=== PATIENT | female | born 1930 | race Caucasian/White ===

== ENCOUNTER 2016-10-06 11:12 | Observation (INO) | payer MEDICARE, OTHER ==
[~2016-10-06] VITALS: Ht 162.6 cm; Wt 74.9 kg
[2016-10-06] VITALS (7 sets, daily range): BP systolic 108–152; BP diastolic 60–90; PULSE 89–132; RESP 16–18; O2SAT 91–98
[~2016-10-06 11:12] MED LIST: ALLO300T2 PO; ARNI120T TP; ATOR40TA69 PO; CHOL4PAC PO; CLOP75TA28 PO; CYAN25003 SL; ERGO2000 PO; LETR2.5T4 PO; LOSA100T29 PO; MULT1CAP33 PO; NADO80TA PO; OMEP20CA11 PO; VENL37.57 PO; WARF5TAB7 PO
--- NOTE | 2016-10-06 11:21 | ED.REPORT ---
HPI-Neurologic Deficit Date of Service Oct 06, 2016 ED Provider: Dr. Shay The pt is an 85 y/o female on Coumadin with a hx of TIA in 2013 (causing loss of feeling on the bottom of the right foot), A-fib, breast CA (s/p radiation tx , currently on aromatase inhibitor), and HTN who presents to the ED complaining of sudden onset of slurred speech, onset last night. Associated sx include confusion, left sided facial droop, intermittent right occipital headache, nausea and left leg weakness. She is able to walk but states "my left leg isn't working as well as it used to." The pt is not a TPA candidate due to timing and warfarin. Nursing Notes Stated Complaint: POSSIBLE STROKE Nursing Notes Reviewed: Yes Allergies: Coded Allergies: MONTRELL Inhibitors (Verified Allergy, Unknown, COUGH, 12/03/15) NSAIDS (Non-Steroidal Anti-Inflamma (Verified Allergy, Unknown, GI INTOL, 12/03/15) Sulfa (Sulfonamide Antibiotics) (Verified Allergy, Unknown, 12/03/15) amlodipine (Verified Allergy, Unknown, PALP, DIARRHEA, 12/03/15) diltiazem (Verified Allergy, Unknown, CORRAL,PALP, 12/03/15) gabapentin (Verified Allergy, Unknown, PAIN IN BREAST, 12/03/15) guanfacine (Verified Allergy, Unknown, FATIGUE, 12/03/15) hydrochlorothiazide (Verified Allergy, Unknown, WASHED OUT, 12/03/15) oxycodone (Verified Allergy, Unknown, NAUSEA, 12/03/15) reserpine (Verified Allergy, Unknown, VERTIGO, 12/03/15) rosuvastatin (Verified Allergy, Unknown, MUSCLE CRAMPS, 12/03/15) terazosin (Verified Allergy, Unknown, NASAL CONGESTION, JITTERY, 12/03/15) triamterene (Verified Allergy, Unknown, 12/03/15) Uncoded Allergies: SULFA (Allergy, Unknown, 12/03/13) TRIAMTER (Adverse Reaction, Unknown, WASHED OUT, 09/22/13) Scheduled Allopurinol (Allopurinol) 300 Mg Tablet 300 MG PO DAILY Atorvastatin Calcium (Atorvastatin Calcium) 40 Mg Tablet 20 MG PO DAILY Cholestyramine/Aspartame (Cholestyramine Light Packet) 4 Gm Powd.pack 1 PACKET PO DAILY Cyanocobalamin (Vitamin B-12) (Vitamin B-12) 2,500 Mcg Tab.subl 2,500 MCG SL DAILY Ergocalciferol (Vitamin D2) (Vitamin D2) 2,000 Unit Tablet 1 TAB PO DAILY Letrozole (Letrozole) 2.5 Mg Tablet 2.5 MG PO PM Losartan Potassium (Losartan Potassium) 100 Mg Tablet 100 MG PO HS Multivitamin (Multivitamins) 1 Each Capsule 1 EACH PO DAILY Nadolol (Nadolol) 80 Mg Tablet 80 MG PO HS Omeprazole (Omeprazole) 20 Mg Capsule.dr 20 MG PO DAILY Warfarin Sodium (Warfarin Sodium) 5 Mg Tablet 5 MG PO DAILY except SUN Warfarin Sodium (Warfarin Sodium) 5 Mg Tablet 2.5 MG PO Q SUNDAY Scheduled PRN Venlafaxine (Venlafaxine) 37.5 Mg Tablet 37.5 MG PO BID PRN PRN MOOD General Time Seen by Provider: 11:23 Chief Complaint Slurred speech Hx Obtained From: Patient, Daughter Arrived By: Walk-in Sudden in Onset?: Yes Onset Occurred: Yesterday Symptom Duration: Since onset Location: : Head Quality: Painful Radiation: : Does not radiate Severity: Current: Mild Severity: Maximum: Mild Recent Healthcare: Recent doctor visit Similar Sx Previous: Yes Risk Factors NIH Stroke Scale Level of Consciousness: Alert and responsive (0) Ask Month & Age: Both questions right (0) Open/Close Eyes/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 (0) Horizontal EO Movements: None (0) Visual Palma: No visual loss (0) Facial Palsy: Minor paralysis (1) Right Arm Motor Drift (10s): No drift 10 sec (0) Left Arm Motor Drift (10s): No drift 10 sec (0) Right Leg Motor Drift (5s): No drift 5 sec (0) Left Leg Motor Drift (5s): No drift 5 sec (0) Limb Ataxia FNF/Heel-Grajeda: No ataxia (0) Sensation (Arms/Legs/Face): No sensory loss (0) Language Aphasia: No aphasia, normal (0) Dysarthria: Slurring intelligible (1) Extinction/Inattention: No exctinct/inattent (0) NIHSS Score: 2 Time NIHSS Performed: 11:25 Date NIHSS Performed: Oct 06, 2016 Past Medical History Past Medical History Breast CA s/p radiation tx, currently on aromatase inhibitor HTN Gout IBS CVA November 2013 Remote history of migraines Past Surgical History None Smoking History Never Smoker Social History Alcohol Use: Denies alcohol use Drug Use: Denies drug use Other Social History: Ambulatory Status Cane Review of Systems Reports: memory problem Reports: left sided facial droop GI: Reports: Nausea Neurologic: Reports: Confusion, Headache, Slurred speech, Weakness (left leg weakness) Complete sys rev & neg: except as marked. Physical Exam Initial Vital Signs Vital Signs (First) Date Time Temp Pulse Resp B/P Pulse Ox O2 Delivery O2 Flow Rate FiO2 10/06/16 11:29 36.3 89 17 147/83 98 Room Air Initial VS: Reviewed Neck: Supple, Non-tender, Full range of motion Abdomen / GI: Soft, Non-tender Extremities: Vascular intact, Neuro intact, No swelling, No tenderness Skin: Warm, Dry, No cyanosis General/Constitutional: Awake, Alert, Cooperative Head / Eyes: Atraumatic, Normocephalic, PERRL Respiratory / Chest: Atraumatic, Breath sounds NL, Breath sounds = bilat, No respiratory distress, No rales, No rhonchi, No wheezing Cardiovascular: Heart rate NL, Heart sounds NL, No gallop, No murmurs, No rubs Heart Rate / Rhythm: Positive: Irreg irregular rhythm Neurologic: Oriented X3, No motor deficits, No sensory deficits, CN II - XII intact Speech: Positive: Slurred Left sided facial droop Interpretation & Diagnostics Lab Results Interpretation Result Diagram: 10/06/16 1140 10/06/16 1140 Test 10/06/16 11:40 White Blood Count 6.0th/mm3 (3.8-10.1) Red Blood Count 2.36mil/mm3 (3.90-5.20) Hemoglobin 8.1g/dL (12.0-15.6) Hematocrit 26.1% (35.0-46.0) Mean Corpuscular Volume 110.6fL (81-100) Mean Corpuscular Hemoglobin 34.3pg (27.0-35.0) Mean Corpuscular Hemoglobin Concent 31.0% (32.0-37.0) Red Cell Distribution Width 17.1% (12.3-15.4) Platelet Count 137bil/L (150-400) Neutrophils (%) (Auto) 81.7% (40-74) Lymphocytes (%) (Auto) 7.4% (14-46) Monocytes (%) (Auto) 7.6% (4-12) Eosinophils (%) (Auto) 2.2% (0-5) Basophils (%) (Auto) 0.3% (0-3) Prothrombin Time 30.6sec (8.1-12.5) Prothromb Time International Ratio 2.80ratio Activated Partial Thromboplast Time 34.6sec (22.8-33.0) Sodium Level 139mEq/L (134-144) Potassium Level 4.3mEq/L (3.5-5.2) Chloride Level 100mEq/L (97-108) Carbon Dioxide Level 23mmol/L (18-29) Blood Urea Nitrogen 20mg/dL (8-27) Creatinine 0.98mg/dL (0.57-1.00) Estimat Glomerular Filtration Rate 77mL/min (>59) Glucose Level 115mg/dL (60-99) Calcium Level 9.1mg/dL (8.5-10.1) Total Bilirubin 0.5mg/dL (0.0-1.2) Aspartate Amino Transf (AST/SGOT) 58U/L (0-50) Alanine Aminotransferase (ALT/SGPT) 43U/L (0-32) Alkaline Phosphatase 71U/L (25-165) Troponin T 0.010ug/L (0.0-0.011) Total Protein 6.2g/dL (6.4-8.4) Albumin 4.0g/dL (3.4-5.0) Hold Lopez Top Tube Received (Received) ECG Interpretation ECG Interpretation: A-fib. Rate 101. Time: 11:53 Interpreted by: ED physician X-Ray Chest Interpretation Chest Xray Interpretation: IMPRESSION: 1. Increased blunting of the left costophrenic angle compatible with a small left pleural effusion. 2. Findings consistent with COPD redemonstrated. 3. Persistent right suprahilar and left perihilar bandlike opacities consistent with sequelae of treated disease. Dictated by: Raúl Sim M.D. on 10/06/2016 at 12:14 Approved by: Raúl Sim M.D. on 10/06/2016 at 12:20 View: Portable, 1 view Interpretation / Wet Read by: Interpret - Radiologist CT Head Interpretation IMPRESSION: 1. Low attenuation is present in the left parietal-occipital lobe, possibly related to subacute ischemia. MR brain is recommended as clinically indicated for additional evaluation. 2. Moderate atrophy and chronic microvascular ischemic changes. Dictated by: Grecia Gorman M.D. on 10/06/2016 at 11:38 Approved by: Grecia Gorman M.D. on 10/06/2016 at 11:42 Study: Head CT no contrast Interpretation / Wet Read by: Interpret - Radiologist Re-Eval/Medical Decision Med Decision/Clinical Course Evidence of subacute stroke on CT. Patient will be admitted. Source of Hx: Old records Re-Evaluation/Progress : Time of Eval: 12:53 Re-Evaluation/Progress Note: Rechecked pt. Discussed lab results, imaging results,diagnosis and plan to admit. Pt understands and agrees with the plan for admission. All questions addressed. Consultation : Referral / Consult Name: Andrews Chan MD Consulted With: Hospitalist Call Returned at: 01:15 Complementary Health Therapists: Will see patient, Agrees with eval, Agrees with plan, Accepts admit Counseled Regarding: Diagnosis, Lab results, Need for admission Discharge & Departure Impression: Primary Impression: CVA (cerebral vascular accident) CVA mechanism: unspecified Qualified Code: I63.9 - Cerebral infarction, unspecified Disposition: ADMITTED TO HOSPITAL Discharge Condition All VS Reviewed: Yes Referrals: Amanda Hubbard (PCP) Scribe Attestation Portions of this note were transcribed by Bryan Carson. I,, personally performed the history, physical exam and medical decision-making;I reviewed and confirmed the accuracy of the information in the transcribed note. Signed by Merle Velez. 10/06/16 copies to: Amanda Hubbard Timothy S DO Oct 06, 2016 11:21 Bryan Carson Oct 06, 2016 11:29
[2016-10-06 11:55] LABS: BASOPHILS % (AUTO) 0.3 % (0-3); EOSINOPHILS % (AUTO) 2.2 % (0-5); MONOCYTES % (AUTO) 7.6 % (4-12); Mean Corpuscular Hemoglobin 34.3 pg (27.0-35.0); Mean Corpuscular Volume 110.6 fL (81-100); NEUTROPHILS % (AUTO) 81.7 % (40-74); Platelet Count 137 bil/L (150-400)
[2016-10-06 12:14] LABS: INR 2.8 ratio
--- NOTE | 2016-10-06 12:21 | DRSVH ---
PROCEDURE: X-RAY CHEST ONE VIEW, PORTABLE ([id number]) INDICATIONS: cough, TECHNIQUE: One view of the chest was acquired. COMPARISON: [facility], CR, XR CHEST 2VW, 06/22/2015, 10:56. [facility], CT , CT ANGIO CHEST PE, 12/02/2015, 17:01. [facility], CR, CHEST 2VW, 09/04/2014, 10:54. [facility], CR, XR CHEST 2VW, 08/24/2016, 15:07. FINDINGS: There is increased blunting of the left costophrenic angle suggesting a small left pleura l effusion. Mild blunting of the right costophrenic angle appears unchanged and likely represents pl eural thickening. There is hyperinflation of the lungs with flattening of the hemidiaphragms compatib le with COPD. There are left perihilar and right suprahilar band like opacities which appear similar to the recent prior studies. Mediastinum: Mediastinal contours appear unchanged. Heart size is enlarged. Bones and chest wall: No suspicious bony lesions. Overlying soft tissues appear unremarkable. IMPRESSION: 1. Increased blunting of the left costophrenic angle compatible with a small left pleural effusion. 2. Findings consistent with COPD redemonstrated. 3. Persistent right suprahilar and left perihilar bandlike opacities consistent with sequelae of cecilia ated disease. Dictated by: Raúl Sim M.D. on 10/06/2016 at 12:14 Approved by: Raúl Sim M.D. on 10/06/2016 at 12:20
--- NOTE | 2016-10-06 12:43 | DRSVH ---
PROCEDURE: CT BRAIN WITHOUT CONTRAST ([id number]) INDICATIONS: slurred speech, facial droop TECHNIQUE: Noncontrast 4.5 mm thick angled axial sections acquired from the foramen magnum to the vertex, with c oronal reformats. COMPARISON: [facility], MR, MR BRAIN W&WO CON, 10/19/2015, 7:14. [facility], CT, BRAIN W/O CONTRAST, 04/17/2014, 5:36. FINDINGS: Image quality: Excellent. CSF spaces: Basal cisterns are patent. No extra-axial fluid collections. The ventricles are symmet etsher in size and shape. Brain: No intracranial bleeds or masses. There is cerebral volume loss for age, with resultant vent ricular and sulcal prominence. There are periventricular and deep white matter chronic small vessel ischemic changes. There is intracranial internal carotid artery atherosclerosis. Low-attenuation is present in the left parietal-occipital region. Skull and face: Calvarium and visualized facial bones appear intact, without suspicious lesions. Sinuses: Visualized sinuses and mastoids are clear. IMPRESSION: 1. Low attenuation is present in the left parietal-occipital lobe, possibly related to subacute ische ruel. MR brain is recommended as clinically indicated for additional evaluation. 2. Moderate atrophy and chronic microvascular ischemic changes. Dictated by: Grecia Gorman M.D. on 10/06/2016 at 11:38 Approved by: Grecia Gorman M.D. on 10/06/2016 at 11:42
[2016-10-06 13:00] LABS: TROPONIN T 0.01 ug/L (0.0-0.011)
--- NOTE | 2016-10-06 13:43 | NUR ---
Evaluation completed. Please go to "Notes" then click on "Assessments and Notes" (bottom left corner of screen). Then select appropriate discipline tab on top of screen.
[2016-10-06] MEDS ORDERED: Labetalol 5 mg/mL 20 mL Inj IVPUSH PRN (13:50)
[2016-10-06] MEDS ORDERED: Alum-Mag Hydrox-Simeth 30 mL Suspension PO PRN (13:50)
[2016-10-06] MEDS ORDERED: Ondansetron 2 mg/mL 2 mL Inj IVPUSH PRN (13:50)
[2016-10-06] MEDS ORDERED: Polyethylene Glycol (PEG) 17 Gm Powder PO PRN (13:50)
--- NOTE | 2016-10-06 15:38 | NUR ---
Admit Patient transported to 3001 from ED around 1445, NIH 0, A & O x 3, equal strength in extremities, no facial droop, patient & family states she's at her baseline. Oriented to room, admit completed by primary RN, med rec by admit RN. Belongings accounted for, form signed. SL x 1. Tele: A fib 100. Family at the bedside. MRI scheduled for this afternoon.
--- NOTE | 2016-10-06 17:05 | PCM.HPMED ---
Subjective Date of Service Oct 06, 2016 Primary Provider: Admitting Physician: Andrews Chan MD Primary Care Physician: Amanda Hubbard Attending Physician: Andrews Chan MD Chief Complaint: POSSIBLE STROKE History of Present Illness: Ms. Vandana Kebede is a very pleasant 85 year old lady with past medical history of TIA in 2013 (Left lower extremity numbness), A-fib on warfarin, breast CA (s/ p radiation tx 2012, currently on aromatase inhibitor), and HTN who presents to the [facility] Emergency Department at the behest of her daughter, Ct, who, last evening, noticed a sudden onset of slurred speech, slight left sided facial droop, and mild confusion. Ms. Kebede reports 2 week history of very brief intermittent right occipital/temporal headaches 10/10 sharp and "grabbing " in nature, mild nausea with 3 episodes of vomiting, insomnia and weakness, familiar odd left lower extremity sensation similar to her previous TIA, and the overall gut-sensation that something doesn't feel quite right. She denies syncope, change in vision, fevers, chills, chest pain, shortness of breath, abdominal pain, abnormal diarrhea/constipation. Social: She lives at home with her , Waldemar. She has good social support. DNR/DNI. In the ED patients vitals: T - 36.3, HR - 89, RR - 17, BP - 147/83, 98% RA. Brain CT - 1. Low attenuation is present in the left parietal-occipital lobe, possibly related to subacute ischemia. MR brain is recommended as clinically indicated for additional evaluation. 2. Moderate atrophy and chronic microvascular ischemic changes. Notable labs: Hgb 8.1, MCV 110, plt - 137. She received: ASA 162mg. Review of Systems: A comprehensive review of systems was conducted with the patient and found to be negative except as above in the History of Present Illness. Allergies Coded Allergies: MONTRELL Inhibitors (Verified Allergy, Unknown, COUGH, 12/03/15) NSAIDS (Non-Steroidal Anti-Inflamma (Verified Allergy, Unknown, GI INTOL, 12/03/15) Sulfa (Sulfonamide Antibiotics) (Verified Allergy, Unknown, 12/03/15) amlodipine (Verified Allergy, Unknown, PALP, DIARRHEA, 12/03/15) diltiazem (Verified Allergy, Unknown, CORRAL,PALP, 12/03/15) gabapentin (Verified Allergy, Unknown, PAIN IN BREAST, 12/03/15) guanfacine (Verified Allergy, Unknown, FATIGUE, 12/03/15) hydrochlorothiazide (Verified Allergy, Unknown, WASHED OUT, 12/03/15) oxycodone (Verified Allergy, Unknown, NAUSEA, 12/03/15) reserpine (Verified Allergy, Unknown, VERTIGO, 12/03/15) rosuvastatin (Verified Allergy, Unknown, MUSCLE CRAMPS, 12/03/15) terazosin (Verified Allergy, Unknown, NASAL CONGESTION, JITTERY, 12/03/15) triamterene (Verified Allergy, Unknown, 12/03/15) Uncoded Allergies: SULFA (Allergy, Unknown, 12/03/13) TRIAMTER (Adverse Reaction, Unknown, WASHED OUT, 09/22/13) Home Medications Scheduled Allopurinol (Allopurinol) 300 Mg Tablet 300 MG PO DAILY Atorvastatin Calcium (Atorvastatin Calcium) 40 Mg Tablet 20 MG PO DAILY Cholestyramine/Aspartame (Cholestyramine Light Packet) 4 Gm Powd.pack 1 PACKET PO DAILY Clopidogrel (Clopidogrel) 75 Mg Tablet 75 MG PO DAILY Cyanocobalamin (Vitamin B-12) (Vitamin B-12) 2,500 Mcg Tab.subl 2,500 MCG SL DAILY Ergocalciferol (Vitamin D2) (Vitamin D2) 2,000 Unit Tablet 1 TAB PO DAILY Letrozole (Letrozole) 2.5 Mg Tablet 2.5 MG PO PM Losartan Potassium (Losartan Potassium) 100 Mg Tablet 100 MG PO HS Multivitamin (Multivitamins) 1 Each Capsule 1 EACH PO DAILY Nadolol (Nadolol) 80 Mg Tablet 80 MG PO HS Omeprazole (Omeprazole) 20 Mg Capsule.dr 20 MG PO DAILY Warfarin Sodium (Warfarin Sodium) 5 Mg Tablet 5 MG PO Mon,Wed,Fri Warfarin Sodium (Warfarin Sodium) 5 Mg Tablet 2.5 MG PO ,Sun,Sun, Scheduled PRN Arnica (Arnica) 120 Ml Tincture 1 APPLIC TP HS PRN PRN arthritis Venlafaxine (Venlafaxine) 37.5 Mg Tablet 37.5 MG PO PRN PRN PRN MOOD PMH Breast CA s/p radiation tx, currently on aromatase inhibitor HTN Gout IBS CVA November 2013 Remote history of migraines Surgical History None reported Family History Mother was healthy Father passed from heart disease Social History Hx Alcohol Use: No Hx Substance Use: No Smoking Status: Never Smoker Exam Vital Signs Vital Sign - Last Date Time Temp Pulse Resp B/P Pulse Ox O2 Delivery O2 Flow Rate FiO2 10/06/16 12:54 89 16 108/67 95 Room Air 10/06/16 11:29 36.3 Exam General: Elderly lady lying in bed in no acute distress, well-developed, well- nourished, appropriately interactive HEENT: Normocephalic, atraumatic. External ears without defect. Pupils equal, round, and reactive to light and accommodation. Anicteric sclerae, moist conjunctivae, and no lid lag. Oropharynx free of erythema and cobble stoning with moist mucosa. Neck: Supple with full range of motion. No jugular venous distension. No bruits. No lymphadenopathy or thyromegaly. Cardiovascular: Tachycardic irregularly irregular rate and rhythm with no murmurs, rubs, or gallops appreciated Pulmonary: Clear to auscultation bilaterally with no crackles, wheezes, or rhonchi. Normal respiratory effort with no use of accessory muscles. Abdomen: Bowel tones present. Soft, nontender, nondistended. No hepatosplenomegaly or masses appreciated. Extremities: No clubbing, cyanosis, edema, or lymphadenopathy appreciated. Skin: Normal temperature, turgor, and texture; no rash, ulcers, or subcutaneous nodules appreciated. Neurological: Cranial nerves grossly intact. Normal muscle strength, tone, and bulk. Reflexes, coordination, and sensory function within normal limits. No known gait impairment. Psychiatric: Normal mood and affect. Alert and oriented to person, place, and time. Lab and Diagnostics Result Diagram: 10/06/16 1140 10/06/16 1140 X-Rays, CTs and MRIs CT BRAIN WITHOUT CONTRAST IMPRESSION: 1. Low attenuation is present in the left parietal-occipital lobe, possibly related to subacute ischemia. MR brain is recommended as clinically indicated for additional evaluation. 2. Moderate atrophy and chronic microvascular ischemic changes. Dictated by: Grecia Gorman M.D. on 10/06/2016 at 11:38 X-RAY CHEST ONE VIEW, PORTABLE IMPRESSION: 1. Increased blunting of the left costophrenic angle compatible with a small left pleural effusion. 2. Findings consistent with COPD redemonstrated. 3. Persistent right suprahilar and left perihilar bandlike opacities consistent with sequelae of treated disease. Approved by: Raúl Sim M.D. on 10/06/2016 at 12:20 12-lead ECG EKG reviewed shows atrial fibrillation HR ~ 110 Assessment & Plan Ms. Vandana Kebdee is a very pleasant 85 year old lady with past medical history of TIA in 2013, A-fib on warfarin, metastatic breast CA in remission, and HTN who presents to the [facility] Emergency Department at the behest of her daughter, Ct, who, last evening, noticed a sudden onset of slurred speech, slight left sided facial droop, and mild confusion. She is currently being worked up for CVA. Acute CVA, present on admission. Improved. - Received ASA in ED, on statin currently. History of TIA in 2013 with left lower extremity affected. - TPA considered however not in time frame and currently on Warfarin. - NIH score initially a 2, however is now 0 or 1. - CT head as above. - MR stroke protocol. - Continue Q4H neuro checks. - PT consult, Gogo jalloh. History of metastatic Breast Cancer 2012. Stable. - Mets to Vertebra, received radiation therapy, "clinical remission." - Continue home Letrozole 2.5 mg HS. Acute Macrocytic Anemia, present on admission. Active. - Hgb 8.1, trending down from prior visits. - Stool guaiac ordered. - Folate/B12 levels ordered. - Following HH Q4H. - Need consent for transfusion if necessary. Atrial Fibrillation on warfarin, therapeutic INR, present on admission. Active. - Continue home warfarin. Dosing per pharmacist. - Continue home Nadolol 80 mg HS for rate control. Hypertension - Permissive hypertension with SBP goal <180, for now. will continue home medications in 24 hours. - Continue home Losartan 100 mg HS when appropriate. Depression - Continue home Venlafaxine 37.5 mg BID PRN mood. Gerd - Continue home Omeprazole 20 mg dialy. Gout - Continue home Allopurinol 300 mg daily. Dyslipidemia - Continue home Atorvastatin 20 mg Daily. - Holding home Cholestryramine 4 gm packet daily. Acetaminophen for mild pain when necessary. Bowel regimen Senna and MiraLAX scheduled and PRN. Zofran when necessary for nausea and vomiting. SubQ heparin held for now. SCDs in place. High-risk medications: Warfarin. Patient Status: Patient is admitted under observation status with expected length of stay less than 2 midnights due to severity of presenting symptoms, risk of adverse event, and complexity of treatment plan. Pain Evaluation: Adequate Pain Control Resuscitation Status: DNR/DNI:Do Not Resuscitate/Intubate MURRAY CARBONE DO Oct 06, 2016 13:57 MURRAY CARBONE DO Oct 06, 2016 13:57
--- NOTE | 2016-10-06 19:01 | DRSVH ---
PROCEDURE: MRI STROKE PROTOCOL ([id number]) Pre- and post-contrast brain MRI, non-contrast brain MR angiogram, pre- and postcontrast neck MR chanelel ogram INDICATIONS: CVA. Sudden onset of slurred speech, left sided weakness, and headache. TECHNIQUE: Brain: Noncontrast axial T1 spin echo, axial T2 fast spin echo, sagittal and axial FLAIR, coronal T2 fast spin echo, axial gradient echo, axial diffusion and ADC through the brain. After the administr ation of contrast, axial 3D VIBE of the cranial vasculature and brain. Brain MRA: Non-contrast 3-D time of flight MR angiogram, with multiple myiodst-hmvtyialt-bkiasbaphy (MIP) reformats performed. Neck MRA: Axial and sagittal TruFISP through the neck. Coronal dynamic MR angiogram during administ ration of contrast in the arterial and venous phases, with 3-dimenstional cjjkrjk-pizquzfjd-kmalnyuju n (MIP) reformats constructed from subtraction images. COMPARISON: [facility], MR, MR BRAIN W&WO CON, 10/19/2015, 7:14. [facility], CT, CT BRAIN WO CON, 10/06/2016, 12:32. FINDINGS: Image quality: Diagnostic with mild motion artifact. There is also magnetic susceptibility artifact from patients dental hardware. BRAIN: CSF spaces: There is mild cerebral volume loss with prominence of the ventricles and sulci. Basal ci sterns are patent. No extra-axial fluid collections. Brain: Diffusion weighted images demonstrate no acute infarcts. Luna-white matter interface is pres erved. There are scattered periventricular and subcortical foci of white matter T2 hyperintensity co nsistent with mild chronic small vessel ischemic changes. Brainstem appears normal. Normal intravas cular flow voids are present. No abnormal intracranial enhancement. Skull and face: Calvarial marrow signal is normal. Orbits appear normal. Sinuses: Sinuses and mastoids are clear. BRAIN MR ANGIOGRAM: Anterior circulation: Intracranial internal carotid arteries are normal in size and enhancement. Th e flow within the paired anterior cerebral arteries is patent bilaterally. The flow within the middl e cerebral arteries is patent bilaterally. The anterior communicating artery is patent. No high-gra de stenoses or occlusions. There is a small infundibulum at the origin of the left posterior communi cating artery. Posterior circulation: The visualized portions of the vertebral arteries demonstrate normal caliber, and join to form a patent basilar artery. The flow within the posterior cerebral arteries is patent bilaterally. No high-grade stenoses, occlusions, or aneurysms. NECK MR ANGIOGRAM: Carotids: Great vessels demonstrate conventional anatomy as they arise from the aortic arch. The or igins of the common carotid arteries appear patent. The calibers and courses of both common carotid arteries are normal. The carotid bulbs are widely patent. There is mild narrowing at the origin of the left external carotid artery less than 50%. The internal carotid arteries demonstrate normal cou rse and caliber. Posterior circulation: The origins of the vertebral arteries appear patent. More superior portions of both vertebral arteries demonstrate normal course and caliber, and join to form a normal appearing basilar artery. Miscellaneous: Subclavian arteries appear patent. Pre-contrast images through the neck demonstrate mild degenerative disc disease with mild spinal canal narrowing at C5-C6 and C6-7. IMPRESSION: BRAIN MRI: 1. No evidence of infarct or other acute intracranial abnormality. 2. Mild chronic white matter small vessel ischemic changes and central volume loss. BRAIN MR ANGIOGRAM: 1. No high-grade stenosis or occlusion of the central intracranial arteries. 2. Small 2 mm infundibulum at the origin of the left posterior communicating artery. NECK MR ANGIOGRAM: 1. No high-grade stenosis or occlusion of the head and neck arteries. The carotid bulbs are widely patent. The estimate of stenosis included in the report of the imaging study was calculated using the NASCET method Dictated by: Raúl Sim M.D. on 10/06/2016 at 19:00 Approved by: Raúl Sim M.D. on 10/06/2016 at 19:00
--- NOTE | 2016-10-06 19:07 | NUR ---
AVA explained to pt and her who is at bedside. AVA signed. Copy of AVA and Medicare self administered medication information given to pt.
[2016-10-07] VITALS (8 sets, daily range): BP systolic 117–149; BP diastolic 60–80; PULSE 79–105; RESP 18–19; O2SAT 92–97
--- NOTE | 2016-10-07 04:56 | NUR ---
Uneventful Night Pt rested through the night with no complaints of pain or discomfort. Denies SOB or n/v. Neuro's within normal limits. Alert and oriented x3. Equal shipfitter strength and no facial droop. Bed locked, low position. Non slip socks on for safety. Call light within reach, using appropriately. Frequent rounding in place. Pleasant and cooperative with care.
[2016-10-07] MEDS: Pantoprazole 40 mg ER24 Tablet PO SCH (06:32)
[2016-10-07 07:15] LABS: APPEARANCE,URINE HAZY (CLEAR,HAZY); COLOR,URINE STRAW (YELLOW)
[2016-10-07 07:16] LABS: OCCULT BLOOD,URINE NEGATIVE (NEGATIVE); UROBILINOGEN,URINE NORMAL (NORMAL)
[2016-10-07 08:09] LABS: Vitamin B12 >1999 pg/mL (211-946)
--- NOTE | 2016-10-07 08:41 | NUR ---
Brain MRI neg for acute changes. ST will sign off at this time.
--- NOTE | 2016-10-07 10:50 | PCM.PNMED ---
Subjective Date of Service Oct 07, 2016 Subjective Patient seen and examined. Doing much better today. No Neurological deficits. Vitals stable. Exam Vital Signs Vital Sign - Last Date Time Temp Pulse Resp B/P Pulse Ox O2 Delivery O2 Flow Rate FiO2 10/07/16 06:06 79 10/07/16 05:34 36.7 18 126/72 92 Room Air Intake and Output 10/06/16 10/06/16 10/07/16 Cumulative From/Thru 14:59 22:59 06:59 10/06/16 11:29 - 10/07/16 05:34 Intake Total 300 ml 300 ml 600 ml Output Total 500 ml 200 ml 700 ml Balance -200 ml 100 ml -100 ml Intake Oral 300 ml 300 ml 600 ml Output Urine Total 500 ml 200 ml 700 ml Exam General: Elderly lady lying in bed in no acute distress, well-developed, well- nourished, appropriately interactive Neck: Supple with full range of motion. No jugular venous distension. No bruits. No lymphadenopathy or thyromegaly. Cardiovascular: Tachycardic irregularly irregular rate and rhythm with no murmurs, rubs, or gallops appreciated Pulmonary: Clear to auscultation bilaterally with no crackles, wheezes, or rhonchi. Normal respiratory effort with no use of accessory muscles. Extremities: No clubbing, cyanosis, edema, or lymphadenopathy appreciated. Skin: Normal temperature, turgor, and texture; no rash, ulcers, or subcutaneous nodules appreciated. Neurological: Cranial nerves grossly intact. Normal muscle strength, tone, and bulk. Reflexes, coordination, and sensory function within normal limits. No known gait impairment. Psychiatric: Normal mood and affect. Alert and oriented to person, place, and time. Lab and Diagnostics Result Diagram: 10/07/16 0555 10/06/16 1140 X-Rays, CTs and MRIs CT BRAIN WITHOUT CONTRAST IMPRESSION: 1. Low attenuation is present in the left parietal-occipital lobe, possibly related to subacute ischemia. MR brain is recommended as clinically indicated for additional evaluation. 2. Moderate atrophy and chronic microvascular ischemic changes. Dictated by: Grecia Gorman M.D. on 10/06/2016 at 11:38 X-RAY CHEST ONE VIEW, PORTABLE IMPRESSION: 1. Increased blunting of the left costophrenic angle compatible with a small left pleural effusion. 2. Findings consistent with COPD redemonstrated. 3. Persistent right suprahilar and left perihilar bandlike opacities consistent with sequelae of treated disease. Approved by: Raúl Sim M.D. on 10/06/2016 at 12:20 BRAIN MRI: 1. No evidence of infarct or other acute intracranial abnormality. 2. Mild chronic white matter small vessel ischemic changes and central volume loss. BRAIN MR ANGIOGRAM: 1. No high-grade stenosis or occlusion of the central intracranial arteries. 2. Small 2 mm infundibulum at the origin of the left posterior communicating artery. NECK MR ANGIOGRAM: 1. No high-grade stenosis or occlusion of the head and neck arteries. The carotid bulbs are widely patent. The estimate of stenosis included in the report of the imaging study was calculated using the NASCET method 12-lead ECG EKG reviewed shows atrial fibrillation HR ~ 110 Assessment & Plan Ms. Vandana Kebede is a very pleasant 85 year old lady with past medical history of TIA in 2013, A-fib on warfarin, metastatic breast CA in remission, and HTN who presents to the [facility] Emergency Department at the behest of her daughter, Ct, who, last evening, noticed a sudden onset of slurred speech, slight left sided facial droop, and mild confusion. Acute CVA, present on admission. Improved. - Received ASA in ED, on statin currently. History of TIA in 2013 with left lower extremity affected. - NIH score initially a 2, however is now 0 or 1. - CT, MRI, MRA : no acute pathologies as read above - PT consult, Swallow eval. - Echo Headache - patient complains of right neck/occipital pain, improves with pressing on it - Tylenol prn History of metastatic Breast Cancer 2012. Stable. - Mets to Vertebra, received radiation therapy, "clinical remission." - Continue home Letrozole 2.5 mg HS. Acute Macrocytic Anemia, present on admission. Active. - Hgb 8.1, ivan - Folate/B12 levels normal to high Atrial Fibrillation on warfarin, therapeutic INR, present on admission. Active. - Continue home warfarin. Dosing per pharmacist. - Continue home Nadolol 80 mg HS for rate control. Hypertension - Continue home Losartan 100 mg HS Depression - Continue home Venlafaxine 37.5 mg BID PRN mood. Gerd - Continue home Omeprazole 20 mg dialy. Gout - Continue home Allopurinol 300 mg daily. Dyslipidemia - Continue home Atorvastatin 20 mg Daily. - Holding home Cholestryramine 4 gm packet daily. Acetaminophen for mild pain when necessary. Bowel regimen Senna and MiraLAX scheduled and PRN. Zofran when necessary for nausea and vomiting. SubQ heparin held for now. SCDs in place. High-risk medications: Warfarin. Patient Status: Patient is admitted under observation status with expected length of stay less than 2 midnights due to severity of presenting symptoms, risk of adverse event, and complexity of treatment plan. Resuscitation Status: DNR/DNI:Do Not Resuscitate/Intubate Andrews Chan MD Oct 07, 2016 10:50
--- NOTE | 2016-10-07 11:50 | NUR ---
Pain Pt reports right sided posterior neck pain that waxes and wanes, "pressing on the area makes it better". aware, new ordered generated. PO Tylenol administered and heating pad placed. Call light in reach, family at bedside visiting with pt. Will continue to monitor. Addendum: 10/07/16 at 1249 by LUCIEN FREED RN Pt reports pain has all but resolved with Tylenol and heating pad. Pt resting quietly, appears to be comfortable, visiting with family.
[2016-10-07 12:22] LABS: INR 3.42 ratio
--- NOTE | 2016-10-07 15:57 | DRSVH ---
[facility] [address] [address] Echocardiogram Report Name: MACK PACHECO JStudy Date : 10/07/2016 Height: 64 in Hospital Exam Location: [facility] Weight: 164 lb Gender: Female BSA: 1.8 m2 : 1930 Age: 85 yrs BP: 149/80 mmHg Reason For Study: TIA Ordering Physician: Performed By: [facility] Interpretation Summary 1) Normal left ventricular thickness, size, wall motion, and systolic function (EF 60-65%). 2) Mildly dilated right ventricle with mildly reduced function. 3) Severe biatrial enlargement present. 4) Moderate mitral regurgitation present. 5) Severe tricuspid regurgitation present. 6) Pulmonary hypertension present, estimated systolic pulmonary pressure of 55mmHg. 7) Elevated right sided filling pressures. 8) Atrial fibrillation present during the study. 9) Compared to the Echo done 05/24/2015, valvular disease present above is new on today's echo. Differential is broad and includes pulmonary etiology, diastolic heart failure, etc. Correlate clinically. Procedure: A two-dimensional transthoracic echocardiogram with color flow and Doppler was performed. The study quality was technically adequate. Comparison is made with the echocardiogram of 05-24-15. The patient was in atrial fibrillation with heart rates between 92-109 bpm during the exam. Left Ventricle: The left ventricle is normal in size. The ejection fraction is estimated to be 60-65%. Diastolic function could not be accurately assessed due to atrial fibrillation. Right Ventricle: The right ventricle is mildly dilated. Right ventricular systolic function is mildly reduced. Atria: The left atrium is severely dilated. The right atrium is severely dilated. The interatrial septum is intact with no evidence for an atrial septal defect. Mitral Valve: The mitral valve leaflets appear mildly thickened, but open well. There is moderate mitral regurgitation. Aortic Valve: The aortic valve is trileaflet. The aortic valve opens well. There is no aortic valve stenosis. There is mild aortic regurgitation. Tricuspid Valve: The tricuspid valve leaflets are thin and pliable. There is severe tricuspid regurgitation. The right ventricular systolic pressure is estimated at 55 mmHg assuming a right atrial pressure of 15 mm Hg. Pulmonic Valve: The pulmonic valve is normal in structure and function. There is trace pulmonic regurgitation. Great Vessels: The aortic root is normal size. The ascending aorta is at the upper limits of normal in size. The IVC is dilated (diameter is greater than 2.1 cm) and it collapses less than 50% with a sniff. This suggests a high right atrial pressure of 15 mm Hg. Pericardium/ Pleura There is no pericardial effusion. There is no pleural effusion. MMode/2D Measurements & Calculations LVIDd: 4.9 cm LA dimension: 4.7 cm RA long axis Ao root diam LVIDs: 3.4 cm FS: 32.1 % LA A2 area: 31.6 cm RA area Aortic Jxn: 2.7 cm IVSd: 0.75 cm LA A4 area: 28.4 cm asc Aorta Diam LVPWd: 0.80 cm LA length (vol) : 28.9 cm RA vol Ao Arch Diam (Prox LA vol: 113.2 ml : 113.ml Trans): 2.9 cm LA vol index RA : 63.1 mm/ RVDd major IVC diam: 2.8 cm : 5.9 cm LV wang. diameter/BSA LV sys. diameter/BSA RVD1 (basal) RVD2 (mid): 2.9 cm (cm/m^2): 2.7 (cm/m^2): 1.9 Doppler Measurements & Calculations Ao V2 max MV P1/2t: 47.1 msec Med Peak E' Isra TR max isra : 125.5 cm/sec MR ERO: 0.21 cm2 : 314.1 cm/sec Ao max P.3 mmHg Lat Peak E' Isra TR max PG Ao mean PG : 39.5 mmHg PA V2 max AI P1/2t : 65.9 cm/sec : 505.2 msec PA mean PG AI dec slope : 0.87 mmHg : 220.7 cm/s2c PA Accel Time : 0.14 sec MV V2 mean MV P1/2t max isra Ao V2 mean MR flow rate : 78.0 cm/sec : 82.8 cm/sec : 113.1 cm3/sec MV mean PG MVA(P1/2t): 4.7 cm2 Ao V2 VTI: 25.8 cmMR PISA radius MV V2 VTI: 18.7 cm PA V2 mean : 42.5 cm/sec Reading Physician:03:57 PM
[2016-10-08] VITALS: BP 118/64; PULSE 100; RESP 18; O2SAT 92
[2016-10-08 03:34] VITALS: BP 117/72; PULSE 99; RESP 18; O2SAT 95
[2016-10-08 05:43] LABS: INR 3.53 ratio
[2016-10-08 06:18] VITALS: PULSE 95
--- NOTE | 2016-10-08 07:38 | PCM.PHAPRO ---
Progress POSSIBLE STROKE Date Oct 07-Oct 08-Sep INR 2.8 3.42 3.53 INR change 0.62 0.11 Warf Dose 5MG hold hold Santana Khan Pharm.D Oct 08, 2016 07:38
[2016-10-08] MEDS: Pantoprazole 40 mg ER24 Tablet PO SCH (07:44)
--- NOTE | 2016-10-08 07:56 | PCM.DIMED ---
Discharge Instructions Date of Service Oct 08, 2016 Dates of Hospitalization Oct 06, 2016 at 13:30 Discharge Diagnosis Discharge Diagnosis TIA Medication Instructions Additional med instructions hold warfarin today Diet Discharge Diet: Heart Healthy Activity Discharge Activity: No restrictions Call your provider Call your provider for: Fever or Chills, Chest pain, Excessive diarrhea Patient Instructions Patient Instructions Outpatient PT Follow-up plan Please follow up at coumadin clinic for PT/INR check , therapeutic range 2-3 Follow-up with PCP in: 1 week (To discuss echo results and further management as needed) Provider: Darshan Walters MD Follow-up in: 1 week (discuss echo results) Andrews Chan MD Oct 08, 2016 07:56
[2016-10-08 08:00] VITALS: PULSE 96
[2016-10-08 11:02] VITALS: BP 138/77; PULSE 80; RESP 20; O2SAT 94
--- NOTE | 2016-10-08 12:57 | NUR ---
Social Work: Initial Assessment/Readiness for Discharge/Multidisciplinary Rounds D: EMR reviewed. Please see initial assessment linked to this note for further details. Pt is an 85 y/o female admitted [facility] with a readmit risk score of 3 for CVA/A FIB per H&P. Pt's insurance is Medicare and [employer] Supplemental. PCP is LYNNE Smith. Pt discussed in multidisciplinary rounds and is medically stable for discharge home today via POV. No MD orders received. No SW needs identified. SW met with pt and spouse at bedside to conduct initial assessment. Pt alert and oriented x3. SW explained role, wrote phone number on white board, and provided [facility] discharge planning checklist. Pt lives in a single-story, level home with her spouse/HARSHA Kebede ([phone]) in [place]. Pt's spouse stated he will provide transport home today. SW asked if pt has concerns regarding discharge - pt does not have concerns about discharge. SW encouraged pt to contact SW if pt has questions/concerns regarding discharge. A: Pt who is independent at baseline and has capacity for self-care at home. P: Pt to discharge home with spouse via POV today. No SW needs identified. No MD orders received. SW will continue to follow pt until time of discharge. PALMIRA Awad Addendum: 10/08/16 at 1419 by CAREN CERVANTES Amended: Links added.
--- NOTE | 2016-10-08 14:44 | PCM.DC.MED ---
Discharge Summary Date of Service Oct 08, 2016 Dates of Hospitalization Date of Hospital Admission Oct 06, 2016 at 13:30 Date of Discharge: Oct 08, 2016 Providers: Admitting Physician: Andrews Chan MD Primary Care Physician: Amanda Hubbard Attending Physician: Andrews Chan MD Diagnosis at Time of Discharge Diagnosis at Time of Discharge TIA Procedures XRay, CTs & MRIs CT BRAIN WITHOUT CONTRAST IMPRESSION: 1. Low attenuation is present in the left parietal-occipital lobe, possibly related to subacute ischemia. MR brain is recommended as clinically indicated for additional evaluation. 2. Moderate atrophy and chronic microvascular ischemic changes. Dictated by: Grecia Gorman M.D. on 10/06/2016 at 11:38 X-RAY CHEST ONE VIEW, PORTABLE IMPRESSION: 1. Increased blunting of the left costophrenic angle compatible with a small left pleural effusion. 2. Findings consistent with COPD redemonstrated. 3. Persistent right suprahilar and left perihilar bandlike opacities consistent with sequelae of treated disease. Approved by: Raúl Sim M.D. on 10/06/2016 at 12:20 BRAIN MRI: 1. No evidence of infarct or other acute intracranial abnormality. 2. Mild chronic white matter small vessel ischemic changes and central volume loss. BRAIN MR ANGIOGRAM: 1. No high-grade stenosis or occlusion of the central intracranial arteries. 2. Small 2 mm infundibulum at the origin of the left posterior communicating artery. NECK MR ANGIOGRAM: 1. No high-grade stenosis or occlusion of the head and neck arteries. The carotid bulbs are widely patent. The estimate of stenosis included in the report of the imaging study was calculated using the NASCET method ECG 12 Lead EKG reviewed shows atrial fibrillation HR ~ 110 Cardiac Echo Impression Interpretation Summary 1) Normal left ventricular thickness, size, wall motion, and systolic function (EF 60-65%). 2) Mildly dilated right ventricle with mildly reduced function. 3) Severe biatrial enlargement present. 4) Moderate mitral regurgitation present. 5) Severe tricuspid regurgitation present. 6) Pulmonary hypertension present, estimated systolic pulmonary pressure of 55mmHg. 7) Elevated right sided filling pressures. 8) Atrial fibrillation present during the study. 9) Compared to the Echo done 05/24/2015, valvular disease present above is new on today's echo. Differential is broad and includes pulmonary etiology, diastolic heart failure, etc. Correlate clinically. Brief History Ms. Vandana Kebede is a very pleasant 85 year old lady with past medical history of TIA in 2013 (Left lower extremity numbness), A-fib on warfarin, breast CA (s/ p radiation tx 2012, currently on aromatase inhibitor), and HTN who presents to the [facility] Emergency Department at the behest of her daughter, Ct, who, last evening, noticed a sudden onset of slurred speech, slight left sided facial droop, and mild confusion. Ms. Kebede reports 2 week history of very brief intermittent right occipital/temporal headaches 10/10 sharp and "grabbing " in nature, mild nausea with 3 episodes of vomiting, insomnia and weakness, familiar odd left lower extremity sensation similar to her previous TIA, and the overall gut-sensation that something doesn't feel quite right. She denies syncope, change in vision, fevers, chills, chest pain, shortness of breath, abdominal pain, abnormal diarrhea/constipation. Social: She lives at home with her , Waldemar. She has good social support. DNR/DNI. In the ED patients vitals: T - 36.3, HR - 89, RR - 17, BP - 147/83, 98% RA. Brain CT - 1. Low attenuation is present in the left parietal-occipital lobe, possibly related to subacute ischemia. MR brain is recommended as clinically indicated for additional evaluation. 2. Moderate atrophy and chronic microvascular ischemic changes. Notable labs: Hgb 8.1, MCV 110, plt - 137. She received: ASA 162mg. Hospital Course Ms. Vandana Kebede is a very pleasant 85 year old lady with past medical history of TIA in 2013, A-fib on warfarin, metastatic breast CA in remission, and HTN who presents to the [facility] Emergency Department at the behest of her daughter, Ct, who, last evening, noticed a sudden onset of slurred speech, slight left sided facial droop, and mild confusion. Acute CVA, present on admission. Improved. - Received ASA in ED, on statin currently. History of TIA in 2013 with left lower extremity affected. - NIH score initially a 2, however resolved quickly - CT, MRI, MRA : no acute pathologies as read above - PT consult, Swallow eval. - Echo as noted above. Headache - patient complains of right neck/occipital pain, improves with pressing on it - Tylenol prn History of metastatic Breast Cancer 2012. Stable. - Mets to Vertebra, received radiation therapy, "clinical remission." - Continue home Letrozole 2.5 mg HS. Acute Macrocytic Anemia, present on admission. Active. - Hgb 8.1, ivan - Folate/B12 levels normal to high Atrial Fibrillation on warfarin, therapeutic INR, present on admission. Active. - Continue home warfarin. Dosing per pharmacist. - Continue home Nadolol 80 mg HS for rate control. Hypertension - Continue home Losartan 100 mg HS Depression - Continue home Venlafaxine 37.5 mg BID PRN mood. Gerd - Continue home Omeprazole 20 mg dialy. Gout - Continue home Allopurinol 300 mg daily. Dyslipidemia - Continue home Atorvastatin 20 mg Daily. - Holding home Cholestryramine 4 gm packet daily. Exam Vital Signs (Last) Date Time Temp Pulse Resp B/P Pulse Ox O2 Delivery O2 Flow Rate FiO2 10/08/16 11:02 36.3 80 20 138/77 94 Room Air Test 10/06/16 11:40 10/07/16 05:55 10/07/16 06:05 10/08/16 04:55 White Blood Count 6.0th/mm3 (3.8-10.1) Red Blood Count 2.36mil/mm3 (3.90-5.20) Mean Corpuscular Volume 110.6fL (81-100) Mean Corpuscular Hemoglobin 34.3pg (27.0-35.0) Mean Corpuscular Hemoglobin Concent 31.0% (32.0-37.0) Red Cell Distribution Width 17.1% (12.3-15.4) Platelet Count 137bil/L (150-400) Neutrophils (%) (Auto) 81.7% (40-74) Lymphocytes (%) (Auto) 7.4% (14-46) Monocytes (%) (Auto) 7.6% (4-12) Eosinophils (%) (Auto) 2.2% (0-5) Basophils (%) (Auto) 0.3% (0-3) Activated Partial Thromboplast Time 34.6sec (22.8-33.0) Sodium Level 139mEq/L (134-144) Potassium Level 4.3mEq/L (3.5-5.2) Chloride Level 100mEq/L (97-108) Carbon Dioxide Level 23mmol/L (18-29) Blood Urea Nitrogen 20mg/dL (8-27) Creatinine 0.98mg/dL (0.57-1.00) Estimat Glomerular Filtration Rate 77mL/min (>59) Glucose Level 115mg/dL (60-99) Hemoglobin A1c 6.2% (4.8-5.6) Calcium Level 9.1mg/dL (8.5-10.1) Total Bilirubin 0.5mg/dL (0.0-1.2) Aspartate Amino Transf (AST/SGOT) 58U/L (0-50) Alanine Aminotransferase (ALT/SGPT) 43U/L (0-32) Alkaline Phosphatase 71U/L (25-165) Troponin T 0.010ug/L (0.0-0.011) Total Protein 6.2g/dL (6.4-8.4) Albumin 4.0g/dL (3.4-5.0) Triglycerides Level 76mg/dL (0-149) Cholesterol Level 112mg/dL (100-199) LDL Cholesterol, Calculated 57.800mg/dL (0-99) VLDL Cholesterol 15.200mg/dL HDL Cholesterol 39mg/dL (>39) Cholesterol/HDL Ratio 2.87 (0.0-4.4) Vitamin B12 Level >1999pg/mL (211-946) Folate > 19.9ng/mL (>3.0) Hold Lopez Top Tube Received (Received) Hemoglobin 8.0g/dL (12.0-15.6) Hematocrit 25.4% (35.0-46.0) Urine Color Straw (YELLOW) Urine Appearance Hazy (CLEAR,HAZY) Urine pH 6.0 (5.0-8.0) Urine Specific Gibbon 1.023 (1.003-1.035) Urine Protein Negativemg/dL (NEG,TRACE) Urine Glucose (UA) Negativemg/dL (NEGATIVE) Urine Ketones Negativemg/dL (NEGATIVE) Urine Occult Blood Negative (NEGATIVE) Urine Nitrite Negative (NEGATIVE) Urine Bilirubin Negative (NEGATIVE) Urine Urobilinogen Normalmg/dL (NORMAL) Urine Leukocyte Esterase Negative (NEGATIVE) Urine RBC 0-2/hpf (0-2) Urine WBC 0-5/hpf (0-5) Urine Epithelial Cells Occasional/hpf (NONE-MOD) Urine Crystals None seen (NONE SEEN) Urine Bacteria Few/hpf (NONE-FEW) Urine Hyaline Casts None/lpf (NONE) Urine Granular Casts None seen (NONE SEEN) Urine Waxy Casts None seen (NONE SEEN) Urine Red Blood Cell Casts None seen (NONE SEEN) Urine White Blood Cell Casts None seen (NONE SEEN) Urine Mucus Present (None Seen) Urine Trichomonas None seen (NONE SEEN) Urine Yeast None (NONE SEEN) Urinalysis Comment None Urine Culture Reflexed Not indicated Prothrombin Time 38.8sec (8.1-12.5) Prothromb Time International Ratio 3.53ratio Discharge Medications Discharge Medications Allopurinol (Allopurinol) 300 Mg Tablet 300 MG PO DAILY (Reported) Atorvastatin Calcium (Atorvastatin Calcium) 40 Mg Tablet 20 MG PO DAILY ( Reported) Cholestyramine/Aspartame (Cholestyramine Light Packet) 4 Gm Powd.pack 1 PACKET PO DAILY (Reported) Cyanocobalamin (Vitamin B-12) (Vitamin B-12) 2,500 Mcg Tab.subl 2,500 MCG SL DAILY (Reported) Ergocalciferol (Vitamin D2) (Vitamin D2) 2,000 Unit Tablet 1 TAB PO DAILY ( Reported) Letrozole (Letrozole) 2.5 Mg Tablet 2.5 MG PO PM (Reported) Losartan Potassium (Losartan Potassium) 100 Mg Tablet 100 MG PO HS (Reported) Multivitamin (Multivitamins) 1 Each Capsule 1 EACH PO DAILY (Reported) Nadolol (Nadolol) 80 Mg Tablet 80 MG PO HS (Reported) Omeprazole (Omeprazole) 20 Mg Capsule.dr 20 MG PO DAILY (Reported) Warfarin Sodium (Warfarin Sodium) 5 Mg Tablet 5 MG PO DAILY except MON (Reported ) Warfarin Sodium (Warfarin Sodium) 5 Mg Tablet 2.5 MG PO Q SUNDAY (Reported) As needed Venlafaxine (Venlafaxine) 37.5 Mg Tablet 37.5 MG PO BID PRN PRN MOOD (Reported) Additional med instructions hold warfarin today Followup Plan Follow-up plan Please follow up at coumadin clinic for PT/INR check , therapeutic range 2-3 Discharge Diet: Heart Healthy Discharge Activity: No restrictions Patient Instructions Outpatient PT Follow-up with PCP in: 1 week (To discuss echo results and further management as needed) Provider: Darshan Walters MD Follow-up in: 1 week (discuss echo results and management ) copies to: Darshan Walters MD, Abhinav MD Oct 08, 2016 14:44
--- NOTE | 2016-10-08 14:48 | NUR ---
Social Work: Discharge D: EMR reviewed. Pt discussed in multidisciplinary rounds and is medically stable for discharge home today via POV. No MD orders received. No SW needs identified. SW met with pt and spouse at bedside to conduct initial assessment. Pt alert and oriented x3. SW explained role, wrote phone number on white board, and provided [facility] discharge planning checklist. Pt lives in a single-story, level home with her spouse/DPDESTINEY Kebede ([phone]) in [place]. Pt's spouse stated he will provide transport home today. SW asked if pt has concerns regarding discharge - pt does not have concerns about discharge. SW encouraged pt to contact SW if pt has questions/concerns regarding discharge. A: Pt who is independent at baseline and has capacity for self-care at home. P: Pt to discharge home with spouse via POV today. No SW needs identified. No MD orders received. PALMIRA Awad
--- NOTE | 2016-10-08 15:05 | NUR ---
Discharge Pt discharged at this time. All belongings gathered and returned to pt. VSS. No complains of pain, dizziness or neurological deficits notes. Discharge packet printed and reviewed with pt and family. Pt taken from [facility] [place] by REVIVAL CLERK in wheelchair to be transported home in private vehicle driven by family.
--- NOTE | 2016-10-08 16:23 | NUR ---
Evaluation completed. Please go to "Notes" then click on "Assessments and Notes" (bottom left corner of screen). Then select appropriate discipline tab on top of screen.
== END 2016-10-08 15:05 | disposition home or self-care (01) ==
LOC: SED 11:12 → MPC 13:30
PROVIDERS: ADMIT Internal Medicine; ATTEND Internal Medicine
DX: I63.9 Cerebral infarction, unspecified (principal); R47.81 Slurred speech; R29.810 Facial weakness; R41.0 Disorientation, unspecified; R51 Headache; I10 Essential (primary) hypertension; E78.5 Hyperlipidemia, unspecified; D53.9 Nutritional anemia, unspecified; M10.9 Gout, unspecified; I48.91 Unspecified atrial fibrillation; F32.9 Major depressive disorder, single episode, unspecified; K21.9 Gastro-esophageal reflux disease without esophagitis; Z66 Do not resuscitate; Z79.01 Long term (current) use of anticoagulants; Z85.3 Personal history of malignant neoplasm of breast; Z92.3 Personal history of irradiation; Z79.811 Long term (current) use of aromatase inhibitors
CPT/HCPCS: 36415; 70450; 70549; 70553; 71010; 80053; 80061; 81000; 82607; 82746; 83036; 84484; 85014; 85018; 85025; 85610; 85730; 92610; 93005; 97162; 99285; A9585; C8929; G0378

== ENCOUNTER 2016-10-31 19:01 | Emergency (ER) | payer MEDICARE, OTHER ==
[~2016-10-31] VITALS: Ht 161.3 cm; Wt 72.7 kg
[~2016-10-31 19:01] MED LIST changes: -ARNI120T TP; -CLOP75TA28 PO
[2016-10-31 19:05] VITALS: BP 131/85; PULSE 98; RESP 19; O2SAT 96
--- NOTE | 2016-10-31 19:34 | ED.REPORT ---
HPI-Trauma Multiple Date of Service Oct 31, 2016 ED Provider: Abel Medina MD Pt is an 85 y/o female anticoagulated on Warfarin w/ a hx of HTN, CVA 10/09, DVT , presenting to the ED with family due to ground level fall which occurred at 14 :00 today. The patient was walking to her mailbox and her foot got tangled in carpeting causing her to fall forward onto the ground. She hit her forehead, nose, right knee, left wrist, left hand, left ankle. She is anticoagulated on Warfarin. Pt denies change in LOC, CORRAL, back pain, vision changes, vomiting, CP, SOB, focal numbness/numbness. Nursing Notes Stated Complaint: GROUND LEVEL FALL Chief Complaint: Multiple Trauma/Fall Nursing Notes Reviewed: Yes Allergies: Coded Allergies: MONTRELL Inhibitors (Verified Allergy, Unknown, COUGH, 12/03/15) NSAIDS (Non-Steroidal Anti-Inflamma (Verified Allergy, Unknown, GI INTOL, 12/03/15) Sulfa (Sulfonamide Antibiotics) (Verified Allergy, Unknown, 12/03/15) amlodipine (Verified Allergy, Unknown, PALP, DIARRHEA, 12/03/15) diltiazem (Verified Allergy, Unknown, CORRAL,PALP, 12/03/15) gabapentin (Verified Allergy, Unknown, PAIN IN BREAST, 12/03/15) guanfacine (Verified Allergy, Unknown, FATIGUE, 12/03/15) hydrochlorothiazide (Verified Allergy, Unknown, WASHED OUT, 12/03/15) oxycodone (Verified Allergy, Unknown, NAUSEA, 12/03/15) reserpine (Verified Allergy, Unknown, VERTIGO, 12/03/15) rosuvastatin (Verified Allergy, Unknown, MUSCLE CRAMPS, 12/03/15) terazosin (Verified Allergy, Unknown, NASAL CONGESTION, JITTERY, 12/03/15) triamterene (Verified Allergy, Unknown, 12/03/15) Uncoded Allergies: SULFA (Allergy, Unknown, 12/03/13) TRIAMTER (Adverse Reaction, Unknown, WASHED OUT, 09/22/13) Scheduled Allopurinol (Allopurinol) 300 Mg Tablet 300 MG PO DAILY Atorvastatin Calcium (Atorvastatin Calcium) 40 Mg Tablet 20 MG PO DAILY Cholestyramine/Aspartame (Cholestyramine Light Packet) 4 Gm Powd.pack 1 PACKET PO DAILY Cyanocobalamin (Vitamin B-12) (Vitamin B-12) 2,500 Mcg Tab.subl 2,500 MCG SL DAILY Ergocalciferol (Vitamin D2) (Vitamin D2) 2,000 Unit Tablet 1 TAB PO DAILY Letrozole (Letrozole) 2.5 Mg Tablet 2.5 MG PO PM Losartan Potassium (Losartan Potassium) 100 Mg Tablet 100 MG PO HS Multivitamin (Multivitamins) 1 Each Capsule 1 EACH PO DAILY Nadolol (Nadolol) 80 Mg Tablet 80 MG PO HS Omeprazole (Omeprazole) 20 Mg Capsule.dr 20 MG PO DAILY Warfarin Sodium (Warfarin Sodium) 5 Mg Tablet 5 MG PO DAILY except SUN Warfarin Sodium (Warfarin Sodium) 5 Mg Tablet 2.5 MG PO Q SUNDAY Scheduled PRN Venlafaxine (Venlafaxine) 37.5 Mg Tablet 37.5 MG PO BID PRN PRN MOOD General Time Seen by Provider: 19:36 Chief Complaint Head pain/injury Hx Obtained From: Patient Arrived By: Walk-in Onset Occurred: 5 - 8 hours ago Symptom Duration: Since onset Progression Since Onset: Constant Location: : Ankle left: Head: Knee right: Wrist left Quality: Painful Severity: Current: Mild Severity: Maximum: Mild Recent Healthcare: No recent hospitalization Similar Sx Previous: No Past Medical History Past Medical History Breast CA s/p radiation tx, currently on aromatase inhibitor DVT - now on Warfarin HTN Gout IBS CVA November 2013 Remote history of migraines Past Surgical History None Smoking History Never Smoker Social History Alcohol Use: Denies alcohol use Drug Use: Denies drug use Other Social History: Ambulatory Status Cane Review of Systems Constitutional: Denies: Fever Respiratory: Denies: Non-productive cough, Pleuritic pain, Shortness of breath Cardiovascular: Denies: Chest pain GI: Denies: Abdominal pain, Vomiting Musculoskeletal: Reports: Extremity pain, Joint pain, Denies: Back pain Skin: Reports Bruising Neurologic: Reports: Headache, Denies: Change LOC, Focal weakness, Numbness, Syncope Complete sys rev & neg: except as marked. Physical Exam Initial Vital Signs Vital Signs (First) Date Time Temp Pulse Resp B/P Pulse Ox O2 Delivery O2 Flow Rate FiO2 10/31/16 19:05 36.7 98 19 131/85 96 Room Air Initial VS: Reviewed, Vital signs normal General/Constitutional: Awake, Alert, No acute distress, Cooperative, Not toxic appearing Head / Eyes: Normocephalic, PERRL, EOMI Very superficial abrasion with purpleish ecchymosis about the right forehead No deformity Midface stable Neck: Atraumatic, No swelling, No midline vertebral tend, No tracheal deviation Trauma - Neck Specific: Positive: Immobilized - C Collar Chronic neck discomfort No deformity or step offs No intra-oral trauma Respiratory / Chest: Atraumatic, Breath sounds NL, Breath sounds = bilat, No respiratory distress, No rales, No rhonchi, No wheezing, No retractions, No stridor, No chest tenderness, No chest wall deformity, No crepitus Cardiovascular: Heart rate NL, Regular rhythm, Heart sounds NL, No gallop, No murmurs, No rubs, Cap refill not delayed, Peripheral circulation NL, Pulses = bilaterally Abdomen: Atraumatic, Soft, Non-tender, No guarding, No rebound, No distention, No palpable mass Back: Atraumatic, Inspection NL, Full range of motion, Painless range of motion , Non-tender, No midline vertebral tend ENT: Airway patent, Mucous membranes moist Ecchymosis over the bridge of the nose with developing periorbital ecchymosis Upper Extremity / MS: No deformity, Neurologic intact, Vascular intact Mild tenderness about the left distal radius Tender of the dorusm of the left hand. Able to form a fist Lower Extremity / Pelvis / MS: No deformity, Neurologic intact, Vascular intact , Pelvis stable Ecchymosis about the right knee Mild tenderness about right knee Able to flex and extend at the hip and knee LLE atraumatic above the ankle Ankle / Foot: No deformity, Neurologic intact, Vascular intact Tenderness about the left lateral malleolus Skin: Warm, Dry, Intact Psychiatric: Affect NL, Mood NL Interpretation & Diagnostics Lab Results Interpretation Result Diagram: 10/31/16 2019 10/31/16 2019 Test 10/31/16 20:19 White Blood Count 7.5th/mm3 (3.8-10.1) Red Blood Count 2.24mil/mm3 (3.90-5.20) Hemoglobin 7.8g/dL (12.0-15.6) Hematocrit 24.8% (35.0-46.0) Mean Corpuscular Volume 110.7fL (81-100) Mean Corpuscular Hemoglobin 34.8pg (27.0-35.0) Mean Corpuscular Hemoglobin Concent 31.5% (32.0-37.0) Red Cell Distribution Width 17.3% (12.3-15.4) Platelet Count 143bil/L (150-400) Neutrophils (%) (Auto) 87.8% (40-74) Lymphocytes (%) (Auto) 5.1% (14-46) Monocytes (%) (Auto) 4.8% (4-12) Eosinophils (%) (Auto) 1.7% (0-5) Basophils (%) (Auto) 0.1% (0-3) Prothrombin Time 19.9sec (8.1-12.5) Prothromb Time International Ratio 1.84ratio Sodium Level 137mEq/L (134-144) Potassium Level 4.1mEq/L (3.5-5.2) Chloride Level 99mEq/L (97-108) Carbon Dioxide Level 24mmol/L (18-29) Blood Urea Nitrogen 21mg/dL (8-27) Creatinine 0.85mg/dL (0.57-1.00) Estimat Glomerular Filtration Rate 91mL/min (>59) Glucose Level 112mg/dL (60-99) Calcium Level 9.4mg/dL (8.5-10.1) Total Bilirubin 0.5mg/dL (0.0-1.2) Aspartate Amino Transf (AST/SGOT) 37U/L (0-50) Alanine Aminotransferase (ALT/SGPT) 19U/L (0-32) Alkaline Phosphatase 63U/L (25-165) Total Protein 6.1g/dL (6.4-8.4) Albumin 3.8g/dL (3.4-5.0) Hold Lopez Top Tube Received (Received) X-Ray Interpretation Xray Interpretation: IMPRESSION: No acute fractures or dislocations. Medial compartmental degenerative narrowing. Dictated by: Josesito Davis M.D. on 10/31/2016 at 20:33 Approved by: Josesito Davis M.D. on 10/31/2016 at 20:34 Study Performed: 3 views X-Ray Ordered: Knee right Interpretation / Wet Read by: Interpret - Radiologist Xray Interpretation: IMPRESSION: No acute fractures or dislocations. Severe degenerative change and osteopenia. Dictated by: Josesito Davis M.D. on 10/31/2016 at 20:32 Approved by: Josesito Davis M.D. on 10/31/2016 at 20:33 Study Performed: 3 views X-Ray Ordered: Hand left Interpretation / Wet Read by: Interpret - Radiologist Xray Interpretation: IMPRESSION: No acute fractures or dislocations. Dictated by: Josesito Davis M.D. on 10/31/2016 at 20:22 Approved by: Josesito Davis M.D. on 10/31/2016 at 20:23 Study Performed: 3 views X-Ray Ordered: Ankle left Interpretation / Wet Read by: Interpret - Radiologist Xray Interpretation: IMPRESSION: 1. Irregularity in the lateral aspect of the distal left radius may represent a nondisplaced fracture. Recommend followup radiographs if clinical exam cannot evaluate possible fracture at this site. 2. Well-corticated areas of calcification posterior to the wrist consistent with degenerative change or a previous triquetral fracture. 3. Left wrist soft tissue swelling. 4. Degenerative changes and osteopenia. Dictated by: Josesito Davis M.D. on 10/31/2016 at 20:19 Approved by: Josesito Davis M.D. on 10/31/2016 at 20:22 Study Performed: 5 views X-Ray Ordered: Wrist left Interpretation / Wet Read by: Interpret - Radiologist CT Head Interpretation IMPRESSION: No CT evidence of acute intracranial pathology. Dictated by: Josesito Davis M.D. on 10/31/2016 at 19:59 Approved by: Josesito Davis M.D. on 10/31/2016 at 20:00 Study: Head CT no contrast Interpretation / Wet Read by: Interpret - Radiologist CT C-Spine Interpretation IMPRESSION: 1. No CT evidence of acute pathology in the cervical spine. 2. Stable T5 vertebral body metastasis with minimal height loss. 3. Right apical pulmonary consolidation partially visualized. Dictated by: Josesito Davis M.D. on 10/31/2016 at 20:01 Approved by: Josesito Davis M.D. on 10/31/2016 at 20:06 Study type: CT no contrast Interpretation / Wet Read by: Interpret - Radiologist Procedures Splint Post-Applic Eval Extremity Condition: Cap refill < 2 sec, Distal sensation intact, Distal motor Intact, No compartment syndrome Re-Eval/Medical Decision Med Decision/Clinical Course Pt is an 85 y/o female anticoagulated on Warfarin w/ a hx of HTN, CVA 10/09, DVT , presenting to the ED with family due to ground level fall which occurred at 14 :00 today. The patient was walking to her mailbox and her foot got tangled in carpeting causing her to fall forward onto the ground. She hit her forehead, nose, right knee, left wrist, left hand, left ankle. She is anticoagulated on Warfarin. Pt denies change in LOC, CORRAL, back pain, vision changes, vomiting, CP, SOB, focal numbness/numbness. Upon arrival in the emergency department the patient was afebrile, hemodynamically stable and in no apparent distress. Airway, breathing and circulation were intact. Her primary complaint seems to be left wrist tenderness. Fall head to toe survey revealed examination findings notable as above. The patient was placed in a cervical collar. Laboratory studies were notable as below: CBC: no leukocytosis, HCT stable at 24.8 INR 1.84 CMP: unremarkable Imaging studies were obtained as documented above. Tertiary survey revealed no other associated injuries. Patient was placed in a sugar tong splint for left distal radius fracture. She was reevaluated and found to be neurovascularly intact thereafter. No evidence of evolving compartment syndrome. Patient is advised to elevate the extremity and apply ice packs. She was given a very limited supply of oxycodone for pain. She will follow up closely with orthopedic surgery and her primary care physician. She is discharged to the care of her and daughter and they feel comfortable managing her at home. They are not concerned for safety and her current living situation and state that she is generally quite steady on her feet. Prior to discharge follow- up and return precautions were reviewed in detail with the patient and her family who verbalized understanding and agreement with the plan. The patient was discharged in stable condition. She was clinically cleared of her cervical collar. Source of Hx: Old records, Family Re-Evaluation/Progress : Time of Eval: 21:16 Re-Evaluation/Progress Note: Pt rechecked. Informed pt of plan for discharge. Pt understands and agrees with plan for discharge. F/U instructions and RTER warnings given. All questions addressed. Counseled Regarding: Diagnosis, Lab results, Need for follow-up, When/why to return to ED Discharge & Departure Impression: Primary Impression: Distal radius fracture Encounter type: initial encounter Fracture type: closed Fracture morphology : unspecified fracture morphology Laterality: left Qualified Code: S52.502A - Unspecified fracture of the lower end of left radius, initial encounter for closed fracture Additional Impressions: Fall from ground level Subtherapeutic international normalized ratio (INR) Multiple contusions Minor head injury Encounter type: initial encounter Qualified Code: S00.90XA - Unspecified superficial injury of unspecified part of head, initial encounter Disposition: Home Discharge Condition All VS Reviewed: Yes Condition: Stable Patient Instructions: Wrist Fracture in Adults (ED) Additional Instructions: Thank you for seeking care at the emergency room. You have a left distal radius fracture. The c-spine CT shows no fractures but it does show evidence of metastasis in your thoracic vertebral body which is stable from prior scans. This may represent cancer. You should follow-up with your doctor regarding this. Our primary goal today in the Emergency Department was to evaluate you for any life-threatening conditions. Your evaluation was reassuring. You will be discharged with a prescription for Percocet. Keep the splint applied. You should follow-up with your primary doctor and the referred orthopedist in the next week. You should return to the Emergency Department immediately if you develop numbness/weakness/discoloration of your fingers, confusion, severe pain, or any other concerning signs or symptoms. Thank you for letting us partake in your care today. You have been prescribed a narcotic for pain relief. These drugs are usually combined with acetaminophen (Tylenol#3, Percocet, Darvocet, Anexsia, Vicodin) or aspirin (Empirin#3, Percodan, Synalogs-DC) for increased effect. Narcotics act on the central nervous system to reduce pain; they also impair mental alertness and physical abilities. We advise you not to drink alcohol, drive a car, or operate dangerous equipment when you are taking these drugs. You can lessen stomach irritation from your medicine by taking it with meals or a full glass of water. Common side effects of narcotics are: Nausea and vomiting, heartburn, constipation, dizziness, sleepiness, and mood changes. If you have bothersome side effects or symptoms of an allergic reaction (itching, hives, rash), stop taking your medicine and call your doctor or the emergency room right away. Please keep your narcotic medicine well out of the reach of children. Referrals: Amanda Hubbard (PCP) Abhinav Lyons Attestation Portions of this note were transcribed by Carson Harris. I, Dr. Medina personally performed the history, physical exam and medical decision-making; I reviewed and confirmed the accuracy of the information in the transcribed note. copies to: Amanda Hubbard; Abhinav Lyons Beck O MD Oct 31, 2016 19:34 CARSON HARRIS Oct 31, 2016 19:41
--- NOTE | 2016-10-31 20:02 | DRSVH ---
PROCEDURE: CT BRAIN WITHOUT CONTRAST ([id number]) INDICATIONS: GLF on coumadin TECHNIQUE: Noncontrast 4.5 mm thick angled axial sections acquired from the foramen magnum to the vertex, with c oronal reformats. COMPARISON: [facility], CT, CT BRAIN WO CON, 10/06/2016, 12:32. FINDINGS: Image quality: Excellent. CSF spaces: Basal cisterns are patent. No extra-axial fluid collections. Ventricles are normal in size and shape. Brain: No midline shift. No intracranial masses or hemorrhage. Luna-white matter interface is norm al. Skull and face: Calvarium and visualized facial bones are intact, without suspicious lesions. Right supraorbital scalp hematoma. Sinuses: Visualized sinuses and mastoids are clear. IMPRESSION: No CT evidence of acute intracranial pathology. Dictated by: Josesito Davis M.D. on 10/31/2016 at 19:59 Approved by: Josesito Davis M.D. on 10/31/2016 at 20:00
--- NOTE | 2016-10-31 20:08 | DRSVH ---
PROCEDURE: CT CERVICAL SPINE WITHOUT CONTRAST ([id number]) INDICATIONS: GLF on coumadin TECHNIQUE: Noncontrast 3 mm thick sections acquired from the skull base to the T4 level. Sagittal and coronal r eformats were then constructed. For radiation dose reduction, the following was used: automated exp osure control, adjustment of mA and/or kV according to patient size. COMPARISON: [facility], CT, CT BRAIN WO CON, 10/06/2016, 12:32. Chest abdomen and pelvis CT from 10/07/2015 FINDINGS: Image quality: Excellent. Bones: No fractures or dislocations. Visualized superior ribs are intact. Again noted is a T5 vert ebral body metastasis with height loss unchanged since at least 10/07/15. Cervical vertebral body heig hts are normal. Multilevel intervertebral body disc height loss and osteophyte formation consistent w ith degenerative change greatest at C3-4 and C6-7. Soft tissues: Partially visualized right apical consolidation. Prominent upper mediastinal lymph node s. IMPRESSION: 1. No CT evidence of acute pathology in the cervical spine. 2. Stable T5 vertebral body metastasis with minimal height loss. 3. Right apical pulmonary consolidation partially visualized. Dictated by: Josesito Davis M.D. on 10/31/2016 at 20:01 Approved by: Josesito Davis M.D. on 10/31/2016 at 20:06
--- NOTE | 2016-10-31 20:24 | DRSVH ---
PROCEDURE: X-RAY LEFT WRIST COMPLETE, MINIMUM THREE VIEWS ([id number]) INDICATIONS: GROUND LEVEL FALL TECHNIQUE: 5 views of the wrist were acquired. COMPARISON: None. FINDINGS: Bones: Irregularity in the lateral aspect of the distal right radius. Osteopenia. Tiny corticated a reas of calcification posterior to the left wrist. Degenerative changes throughout the left wrist gre atest at the first CMC and STT joints. Old ununited ulnar styloid process fracture. Scaphoid view: No displaced fractures. Soft tissues: TFCC calcifications. Left wrist soft tissue swelling. IMPRESSION: 1. Irregularity in the lateral aspect of the distal left radius may represent a nondisplaced fracture . Recommend followup radiographs if clinical exam cannot evaluate possible fracture at this site. 2. Well-corticated areas of calcification posterior to the wrist consistent with degenerative change or a previous triquetral fracture. 3. Left wrist soft tissue swelling. 4. Degenerative changes and osteopenia. Dictated by: Josesito Davis M.D. on 10/31/2016 at 20:19 Approved by: Josesito Davis M.D. on 10/31/2016 at 20:22
--- NOTE | 2016-10-31 20:25 | DRSVH ---
PROCEDURE: X-RAY LEFT ANKLE, MINIMUM THREE VIEWS ([id number]) INDICATIONS: GROUND LEVEL FALL TECHNIQUE: 3 views of the ankle were acquired. COMPARISON: None. FINDINGS: Bones: No fractures or dislocations. Ankle mortise is normally aligned. No suspicious bony lesions . Osteopenia. Soft tissues: No tibiotalar joint effusion. Achilles tendon appears normal. Left ankle soft tissue swelling. IMPRESSION: No acute fractures or dislocations. Dictated by: Josesito Davis M.D. on 10/31/2016 at 20:22 Approved by: Josesito Davis M.D. on 10/31/2016 at 20:23
[2016-10-31 20:26] LABS: BASOPHILS % (AUTO) 0.1 % (0-3); EOSINOPHILS % (AUTO) 1.7 % (0-5); MONOCYTES % (AUTO) 4.8 % (4-12); Mean Corpuscular Hemoglobin 34.8 pg (27.0-35.0); Mean Corpuscular Volume 110.7 fL (81-100); NEUTROPHILS % (AUTO) 87.8 % (40-74); Platelet Count 143 bil/L (150-400)
--- NOTE | 2016-10-31 20:35 | DRSVH ---
PROCEDURE: X-RAY LEFT HAND, MINIMUM THREE VIEWS ([id number]) INDICATIONS: HAND PAIN TECHNIQUE: 3 views of the hand(s) acquired. COMPARISON: None. FINDINGS: Bones: Osteopenia. No acute fractures or dislocations. Severe degenerative changes in multiple interp halangeal joints greatest in the left third PIP joint. Soft tissues: No suspicious soft tissue calcifications. IMPRESSION: No acute fractures or dislocations. Severe degenerative change and osteopenia. Dictated by: Josesito Davis M.D. on 10/31/2016 at 20:32 Approved by: Josesito Davis M.D. on 10/31/2016 at 20:33
--- NOTE | 2016-10-31 20:36 | DRSVH ---
PROCEDURE: X-RAY RIGHT KNEE, THREE VIEWS ([id number]) INDICATIONS: KNEE PAIN TECHNIQUE: 3 views of the knee were acquired. COMPARISON: None. FINDINGS: Bones: No fractures or dislocations. No suspicious bony lesions. Medial compartmental degenerative narrowing. Osteopenia. Soft tissues: No joint effusion. No suspicious soft tissue calcifications. IMPRESSION: No acute fractures or dislocations. Medial compartmental degenerative narrowing. Dictated by: Josesito Davis M.D. on 10/31/2016 at 20:33 Approved by: Josesito Davis M.D. on 10/31/2016 at 20:34
[2016-10-31 20:56] LABS: INR 1.84 ratio
[2016-10-31] MEDS ORDERED: _oxyCODONE/APAP 5-325 mg Tablet PO PRN (21:20)
[2016-10-31 22:06] VITALS: BP 152/94; PULSE 111; RESP 16; O2SAT 96
[2016-11-06] MEDS ORDERED: ASPI-973 PO (14:34)
== END 2016-10-31 22:05 | disposition home or self-care (01) ==
LOC: SED 19:01
DX: S52.502A Unspecified fracture of the lower end of left radius, initial encounter for closed fracture (principal); S09.8XXA Other specified injuries of head, initial encounter; T14.8 Other injury of unspecified body region; W01.198A Fall on same level from slipping, tripping and stumbling with subsequent striking against other object, initial encounter; Y93.01 Activity, walking, marching and hiking; Y92.009 Unspecified place in unspecified non-institutional (private) residence as the place of occurrence of the external cause; Y99.8 Other external cause status; I10 Essential (primary) hypertension; Z86.73 Personal history of transient ischemic attack (TIA), and cerebral infarction without residual deficits; Z85.3 Personal history of malignant neoplasm of breast; Z86.718 Personal history of other venous thrombosis and embolism; Z79.01 Long term (current) use of anticoagulants; Z88.2 Allergy status to sulfonamides; Z88.5 Allergy status to narcotic agent; Z88.6 Allergy status to analgesic agent; Z88.8 Allergy status to other drugs, medicaments and biological substances